=== PATIENT | male | born 1960 | race Caucasian/White ===

== ENCOUNTER → 2018-09-01 | Outpatient (CLI) | payer BC ==
[~2018-09-01] MED LIST: ZYRTEC10 M3 PO
== END | disposition home or self-care (01) ==
LOC: RAD 11:55
DX: R05 Cough (principal); R07.89 Other chest pain; F17.200 Nicotine dependence, unspecified, uncomplicated

== ENCOUNTER 2019-01-19 14:29 | Inpatient (IN) | payer BC ==
[~2019-01-19] VITALS: Ht 170.2 cm; Wt 81.2 kg
--- NOTE | ~2019-01-19 | EKG ---
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
--- NOTE | ~2019-01-19 | EKG ---
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
--- NOTE | ~2019-01-19 | ST ---
[place], [place] EXERCISE STRESS TEST REPORT [id number] UN[facility] #: [id number] ROOM: 406 DOCTOR: [place],BECKY BIRTHDATE: [birth year] DOS: 01/20/2019 LEXISCAN STRESS TEST REASON FOR TEST: Evaluation of chest pain. PHYSICAL EXAMINATION NECK: Supple. LUNGS: Clear anteriorly. HEART: Regular rhythm. PROTOCOL: Lexiscan protocol. Maximum heart rate 110, peak blood pressure 142/72. Protocol, initially Gadiel protocol was attempted, the patient unable to achieve the target heart rate, hence it was changed to Lexiscan protocol. SYMPTOMS: The patient is chest pain free. EKG: Resting EKG showed sinus rhythm, sinus bradycardia. Stress EKG showed no ischemia, no arrhythmias. CONCLUSION: Clinically, the patient is chest pain free. EKG, nonischemic. POST-STRESS COMPLICATIONS: None. The patient received total of 0.4 mg Lexiscan. BECKY GUTHRIE MD CM:STRESS:EXERCISE STRESS TEST REPORT 1151 1446 BECKY GUTHRIE MD
--- NOTE | ~2019-01-19 | EKG ---
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
[2019-01-19 14:29] VITALS: BP 125/72
[2019-01-19 14:52] LABS: BASO # 0.1 10*3/uL (0.0-0.1); BASO % 0.7 % (0.0-1.0); EOS # 0.2 10*3/uL (0.0-0.4); EOS % 2.3 % (1.0-4.0); HEMATOCRIT 47.4 % (42.0-52.0); HEMOGLOBIN 16.2 g/dl (14.0-18.0); LYMPH # 1.7 10*3/uL (1.3-4.4); LYMPH % 24.9 % (27.0-41.0); MEAN CELL VOLUME 97.1 fl (80.0-94.0); MEAN CORPUSCULAR HGB 33.2 pg (27.0-31.0); MEAN CORPUSCULAR HGB CONC 34.2 g/dl (33.0-37.0); MEAN PLATELET VOLUME 9.6 fl (9.6-12.3); MONO # 0.7 10*3/uL (0.1-1.0); MONO % 9.9 % (3.0-9.0); NEUT # 4.3 10*3/uL (2.3-7.9); NEUT % 61.9 % (47.0-73.0); PLATELET COUNT AUTOMATED 193 10*3/uL (130-400); RED BLOOD COUNT 4.88 10*6/uL (4.50-5.90); RED CELL DISTRI WIDTH 12.6 % (0-14.5)
[2019-01-19 15:03] LABS: ACT PARTIAL THROMBO TIME 28.2 SECONDS (20.0-32.1); INTERNATIONAL NORM RATIO 1.1 (2.0-3.5)
[2019-01-19 15:09] LABS: ALBUMIN 3.6 gm/dl (3.1-4.5); ALKALINE PHOSPHATASE 48 U/L (45-117); BUN 9 mg/dl (7-24); CHLORIDE 107 mmol/L (98-107); CREATININE 0.72 mg/dL (0.70-1.30); POTASSIUM 3.3 mmol/L (3.5-5.1); SGOT/AST 14 IU/L (3-35); SGPT/ALT 16 U/L (12-78); SODIUM 141 mmol/L (136-145); TOTAL PROTEIN 7.4 gm/dL (6.4-8.2)
[2019-01-19 15:10] LABS: TROPONIN I < 0.015 ng/ml (<0.045)
[2019-01-19 16:25] VITALS: BP 121/70
[2019-01-19 16:51] VITALS: BP 121/70
[2019-01-19] MEDS ORDERED: ZYRTEC10 M3 PO (17:00)
[2019-01-19 20:00] VITALS: BP 121/70
[2019-01-20] VITALS: BP 141/73
[2019-01-20 06:28] LABS: BASO # 0.1 10*3/uL (0.0-0.1); BASO % 0.7 % (0.0-1.0); EOS # 0.2 10*3/uL (0.0-0.4); EOS % 2.3 % (1.0-4.0); HEMATOCRIT 46.4 % (42.0-52.0); HEMOGLOBIN 15.6 g/dl (14.0-18.0); LYMPH # 1.2 10*3/uL (1.3-4.4); LYMPH % 15.3 % (27.0-41.0); MEAN CELL VOLUME 98.3 fl (80.0-94.0); MEAN CORPUSCULAR HGB 33.1 pg (27.0-31.0); MEAN CORPUSCULAR HGB CONC 33.6 g/dl (33.0-37.0); MEAN PLATELET VOLUME 10.2 fl (9.6-12.3); MONO # 0.7 10*3/uL (0.1-1.0); NEUT # 5.6 10*3/uL (2.3-7.9); NEUT % 72.4 % (47.0-73.0); PLATELET COUNT AUTOMATED 164 10*3/uL (130-400); RED BLOOD COUNT 4.72 10*6/uL (4.50-5.90); RED CELL DISTRI WIDTH 12.5 % (0-14.5); WHITE BLOOD COUNT 7.7 10*3/uL (4.8-10.8)
[2019-01-20 06:53] LABS: BUN 10 mg/dl (7-24); CHLORIDE 106 mmol/L (98-107); CREATININE 0.61 mg/dL (0.70-1.30); POTASSIUM 3.9 mmol/L (3.5-5.1); SODIUM 139 mmol/L (136-145)
[2019-01-20 07:04] LABS: CHOLESTEROL 170 mg/dL (<200); FREE T4 0.87 ng/dl (0.76-1.46); HDL CHOLESTEROL 71 mg/dl (40-60); LDL CHOLESTEROL 89 mg/dL (9-159); TRIGLYCERIDES 48 mg/dl (<150); VLDL CHOLESTEROL 10 mg/dL (6-40)
[2019-01-20 07:13] LABS: VITAMIN D, 25-HYDROXY 24.7 ng/mL (30-100)
[2019-01-20 08:00] VITALS: BP 138/74
[2019-01-20 12:00] VITALS: BP 129/87
== END 2019-01-20 14:52 | disposition home or self-care (01) | DRG 313 ==
LOC: ED 14:29 → EDHOLD 15:29 → 4E 15:29
PROVIDERS: Emergency Medicine; Internal Medicine; ADMIT Internal Medicine
PROC: 3E073KZ Introduction of Other Diagnostic Substance into Coronary Artery, Percutaneous Approach (ICD-10-PCS; principal; 2019-01-20)
PROC: 4A02XM4 Measurement of Cardiac Total Activity, External Approach (ICD-10-PCS; principal; 2019-01-20)
DX: R07.9 Chest pain, unspecified (principal); F17.210 Nicotine dependence, cigarettes, uncomplicated; E87.6 Hypokalemia; R73.9 Hyperglycemia, unspecified; D75.89 Other specified diseases of blood and blood-forming organs; Z71.6 Tobacco abuse counseling; Z87.01 Personal history of pneumonia (recurrent); Z98.52 Vasectomy status; Z80.0 Family history of malignant neoplasm of digestive organs

== ENCOUNTER 2021-01-10 06:24 | Inpatient (IN) | payer SELFPAY ==
[~2021-01-10] VITALS: Ht 167.6 cm; Wt 90.8 kg
[2021-01-10 06:33] VITALS: BP 162/99
[2021-01-10 07:06] LABS: BASO # 0.1 10*3/uL (0.0-0.1); BASO % 0.4 % (0.0-1.0); EOS % 0.1 % (1.0-4.0); HEMATOCRIT 52.4 % (42.0-52.0); LYMPH # 1.4 10*3/uL (1.3-4.4); LYMPH % 9.8 % (27.0-41.0); MEAN CELL VOLUME 98.7 fl (80.0-94.0); MEAN CORPUSCULAR HGB 34.3 pg (27.0-31.0); MEAN CORPUSCULAR HGB CONC 34.7 g/dl (33.0-37.0); MONO % 6.9 % (3.0-9.0); NEUT # 11.4 10*3/uL (2.3-7.9); NEUT % 82.4 % (47.0-73.0); PLATELET COUNT AUTOMATED 156 10*3/uL (130-400); RED BLOOD COUNT 5.31 10*6/uL (4.50-5.90); RED CELL DISTRI WIDTH 13.4 % (0-14.5); WHITE BLOOD COUNT 13.8 10*3/uL (4.8-10.8)
[2021-01-10 07:19] VITALS: BP 139/86
[2021-01-10 07:22] LABS: ALBUMIN 3.2 gm/dl (3.1-4.5); ALKALINE PHOSPHATASE 82 U/L (45-117); BUN 2 mg/dl (7-24); CHLORIDE 100 mmol/L (98-107); CREATININE 0.69 mg/dL (0.70-1.30); POTASSIUM 3.2 mmol/L (3.5-5.1); SGOT/AST 36 IU/L (3-35); SGPT/ALT 27 U/L (12-78); SODIUM 132 mmol/L (136-145); TOTAL PROTEIN 7.9 gm/dL (6.4-8.2)
[2021-01-10 07:24] LABS: LIPASE 2024 U/L (73-393); TROPONIN I < 0.015 ng/ml (<0.045)
[2021-01-10 12:48] VITALS: BP 142/93
[2021-01-10 16:00] VITALS: BP 140/88
[2021-01-10 20:00] VITALS: BP 138/84
[2021-01-11] VITALS: BP 120/104
[2021-01-11 06:34] LABS: ALBUMIN 2.7 gm/dl (3.1-4.5); BUN 4 mg/dl (7-24); CHLORIDE 104 mmol/L (98-107); CHOLESTEROL 88 mg/dL (<200); CREATININE 0.71 mg/dL (0.70-1.30); LDL CHOLESTEROL 47 mg/dL (9-159); LIPASE 392 U/L (73-393); SGOT/AST 22 IU/L (3-35); SGPT/ALT 20 U/L (12-78); SODIUM 135 mmol/L (136-145); TOTAL PROTEIN 6.9 gm/dL (6.4-8.2); TRIGLYCERIDES 70 mg/dl (<150)
[2021-01-11 06:41] LABS: ALKALINE PHOSPHATASE 66 U/L (45-117); FREE T4 0.87 ng/dl (0.76-1.46)
[2021-01-11 07:09] LABS: BASO % 0.3 % (0.0-1.0); EOS # 0.1 10*3/uL (0.0-0.4); EOS % 0.8 % (1.0-4.0); HEMATOCRIT 49.5 % (42.0-52.0); LYMPH % 9.7 % (27.0-41.0); MEAN CELL VOLUME 100.8 fl (80.0-94.0); MEAN CORPUSCULAR HGB CONC 33.7 g/dl (33.0-37.0); MEAN PLATELET VOLUME 11.2 fl (9.6-12.3); MONO # 0.8 10*3/uL (0.1-1.0); MONO % 8.2 % (3.0-9.0); NEUT % 80.7 % (47.0-73.0); RED BLOOD COUNT 4.91 10*6/uL (4.50-5.90); RED CELL DISTRI WIDTH 13.6 % (0-14.5); WHITE BLOOD COUNT 9.9 10*3/uL (4.8-10.8)
[2021-01-11 07:10] LABS: PLATELET COUNT AUTOMATED 108 10*3/uL (130-400)
[2021-01-11 08:00] VITALS: BP 134/81
[2021-01-11 12:00] VITALS: BP 140/78
== END 2021-01-11 14:32 | disposition left against medical advice (07) | DRG 439 ==
LOC: ED 06:24 → EDHOLD 09:11 → 5E 11:48
PROVIDERS: Internal Medicine; ADMIT Emergency Medicine; ATTEND Emergency Medicine
DX: K85.90 Acute pancreatitis without necrosis or infection, unspecified (principal); E87.1 Hypo-osmolality and hyponatremia; R65.10 Systemic inflammatory response syndrome (SIRS) of non-infectious origin without acute organ dysfunction; K92.1 Melena; F10.10 Alcohol abuse, uncomplicated; E87.6 Hypokalemia; D75.1 Secondary polycythemia; D72.829 Elevated white blood cell count, unspecified; F17.210 Nicotine dependence, cigarettes, uncomplicated; K70.0 Alcoholic fatty liver; E66.9 Obesity, unspecified; R74.01 Elevation of levels of liver transaminase levels; R73.9 Hyperglycemia, unspecified; Z53.29 Procedure and treatment not carried out because of patient's decision for other reasons; Z98.52 Vasectomy status; Z80.0 Family history of malignant neoplasm of digestive organs; Z71.6 Tobacco abuse counseling; Z68.32 Body mass index [BMI] 32.0-32.9, adult

== ENCOUNTER 2021-04-29 21:51 | Inpatient (IN) | payer SELFPAY ==
[~2021-04-29] VITALS: Ht 170.2 cm; Wt 87.2 kg
[2021-04-29 21:55] VITALS: BP 207/152
[2021-04-29 22:25] LABS: HEMATOCRIT 43.3 % (42.0-52.0); MEAN CELL VOLUME 97.1 fl (80.0-94.0); MEAN CORPUSCULAR HGB 33.4 pg (27.0-31.0); MEAN CORPUSCULAR HGB CONC 34.4 g/dl (33.0-37.0); MEAN PLATELET VOLUME 9.3 fl (9.6-12.3); NUCLEATED RED BLOOD CELL 0.1 10*3/uL (0.0-0.0); NUCLEATED RED BLOOD CELL 0.4 % (0.0-0.0); PLATELET COUNT AUTOMATED 281 10*3/uL (130-400); RED BLOOD COUNT 4.46 10*6/uL (4.50-5.90); RED CELL DISTRI WIDTH 12.8 % (0-14.5); WHITE BLOOD COUNT 33.1 10*3/uL (4.8-10.8)
[2021-04-29 22:35] LABS: BILIRUBIN Negative (Negative); BLOOD 2+ (Negative); CLARITY Clear (Clear); COLOR Yellow (Yellow); GLUCOSE 3+ (Negative); KETONE 1+ (Negative); LEUKO ESTERASE Negative (Negative); NITRITE Negative (Negative); SPECIFIC GRAVITY 1.015 (1.001-1.030); UROBILINOGEN 0.2 E.U./dl (0.0-1.0)
[2021-04-29 22:39] VITALS: BP 130/79
[2021-04-29 22:45] LABS: URINE AMPHETAMINES < 1000 (1000ng/ml); URINE BARBITURATES < 200 (200ng/ml); URINE BENZODIAZEPINES < 200 (200ng/ml); URINE CANNABINOIDS (THC) < 50 (50ng/ml); URINE COCAINE < 300 (300ng/ml); URINE METHADONE < 300 (300ng/ml); URINE OPIATES < 300 (300ng/ml)
[2021-04-29 22:46] LABS: URINE PHENCYCLIDINE < 25 (25ng/ml)
[2021-04-29 22:48] LABS: ALKALINE PHOSPHATASE 121 U/L (45-117); BUN 12 mg/dl (7-24); CHLORIDE 90 mmol/L (98-107); CREATININE 1.48 mg/dL (0.70-1.30); POTASSIUM 3.5 mmol/L (3.5-5.1); SGPT/ALT 34 U/L (12-78); SODIUM 123 mmol/L (136-145); TOTAL PROTEIN 8.4 gm/dL (6.4-8.2)
[2021-04-29 22:51] LABS: ETHYL ALCOHOL < 3.0 mg/dl (<3)
[2021-04-29 22:58] LABS: PLATELET SUFFICIENCY NORMAL (NORMAL); TOTAL CELLS COUNTED 100 #CELLS
[2021-04-29 23:03] LABS: BACTERIA TRACE; RBC 16-20 rbc/hpf (0-2)
[2021-04-29 23:05] LABS: SGOT/AST 28 IU/L (3-35)
[2021-04-29 23:27] VITALS: BP 124/76
[2021-04-30] VITALS (12 sets, daily range): BP systolic 92–134; BP diastolic 46–77
[2021-04-30 00:43] LABS: BUN 11 mg/dl (7-24); CHLORIDE 95 mmol/L (98-107); CREATININE 1.28 mg/dL (0.70-1.30); POTASSIUM 3.4 mmol/L (3.5-5.1); SODIUM 125 mmol/L (136-145)
[2021-04-30 01:26] LABS: ARTERIAL BLOOD GAS PO2 145.5 (80-90)
[2021-04-30 01:30] LABS: ARTERIAL BLOOD GAS PH 7.144 (7.35-7.45)
[2021-04-30 03:09] LABS: BUN 12 mg/dl (7-24); CHLORIDE 97 mmol/L (98-107); CREATININE 1.28 mg/dL (0.70-1.30); POTASSIUM 3.4 mmol/L (3.5-5.1); SODIUM 128 mmol/L (136-145)
[2021-04-30 06:32] LABS: BUN 11 mg/dl (7-24); CHLORIDE 101 mmol/L (98-107); CREATININE 0.92 mg/dL (0.70-1.30); POTASSIUM 3.7 mmol/L (3.5-5.1); SODIUM 129 mmol/L (136-145)
[2021-04-30 06:48] LABS: FREE T4 0.85 ng/dl (0.76-1.46); THYROID STIM HORMONE (HS) 0.994 uIU/ml (0.358-4.75)
[2021-04-30 07:09] LABS: HEMATOCRIT 36.8 % (42.0-52.0); MEAN CELL VOLUME 96.8 fl (80.0-94.0); MEAN CORPUSCULAR HGB 33.4 pg (27.0-31.0); MEAN CORPUSCULAR HGB CONC 34.5 g/dl (33.0-37.0); MEAN PLATELET VOLUME 9.5 fl (9.6-12.3); NUCLEATED RED BLOOD CELL 0.1 10*3/uL (0.0-0.0); NUCLEATED RED BLOOD CELL 0.2 % (0.0-0.0); WHITE BLOOD COUNT 24.4 10*3/uL (4.8-10.8)
[2021-04-30 07:11] LABS: PLATELET COUNT AUTOMATED 190 10*3/uL (130-400)
[2021-04-30 08:47] LABS: PLATELET SUFFICIENCY NORMAL (NORMAL); TOTAL CELLS COUNTED 100 #CELLS; VACUOLATION OF NEUTROPHILS SLIGHT
[2021-04-30 08:48] LABS: BURR CELLS MODERATE; POLYCHROMASIA SLIGHT
[2021-04-30 10:15] LABS: BUN 10 mg/dl (7-24); CHLORIDE 102 mmol/L (98-107); CREATININE 0.69 mg/dL (0.70-1.30); POTASSIUM 4.5 mmol/L (3.5-5.1); SODIUM 129 mmol/L (136-145)
[2021-04-30 12:40] LABS: BUN 10 mg/dl (7-24); CHLORIDE 104 mmol/L (98-107); CREATININE 0.68 mg/dL (0.70-1.30); POTASSIUM 4.2 mmol/L (3.5-5.1); SODIUM 131 mmol/L (136-145)
[2021-04-30 17:34] LABS: BUN 9 mg/dl (7-24); CHLORIDE 107 mmol/L (98-107); POTASSIUM 4.3 mmol/L (3.5-5.1); SODIUM 133 mmol/L (136-145)
[2021-05-01] VITALS (8 sets, daily range): BP systolic 97–115; BP diastolic 51–73
[2021-05-01 05:58] LABS: ALKALINE PHOSPHATASE 79 U/L (45-117); BUN 8 mg/dl (7-24); CHLORIDE 108 mmol/L (98-107); CREATININE 0.47 mg/dL (0.70-1.30); SGOT/AST 43 IU/L (3-35); SGPT/ALT 35 U/L (12-78); SODIUM 135 mmol/L (136-145)
[2021-05-01 06:14] LABS: BASO % 0.2 % (0.0-1.0); EOS % 0.3 % (1.0-4.0); HEMATOCRIT 32.1 % (42.0-52.0); LYMPH # 1.2 10*3/uL (1.3-4.4); LYMPH % 11.8 % (27.0-41.0); MEAN CELL VOLUME 94.4 fl (80.0-94.0); MEAN CORPUSCULAR HGB 33.8 pg (27.0-31.0); MEAN CORPUSCULAR HGB CONC 35.8 g/dl (33.0-37.0); MEAN PLATELET VOLUME 9.5 fl (9.6-12.3); MONO # 0.7 10*3/uL (0.1-1.0); MONO % 7.3 % (3.0-9.0); NEUT # 7.9 10*3/uL (2.3-7.9); NEUT % 80.1 % (47.0-73.0); NUCLEATED RED BLOOD CELL 0.2 % (0.0-0.0); PLATELET COUNT AUTOMATED 139 10*3/uL (130-400); RED CELL DISTRI WIDTH 12.9 % (0-14.5); WHITE BLOOD COUNT 9.9 10*3/uL (4.8-10.8)
[2021-05-02] VITALS: BP 107/65
[2021-05-02 06:39] LABS: BUN 7 mg/dl (7-24); CHLORIDE 107 mmol/L (98-107); CREATININE 0.51 mg/dL (0.70-1.30); POTASSIUM 3.7 mmol/L (3.5-5.1); SODIUM 137 mmol/L (136-145)
[2021-05-02 08:00] VITALS: BP 98/62
[2021-05-02] MEDS ORDERED: PAROXETINE HCL20 MG PO (08:19)
[2021-05-02 12:00] VITALS: BP 94/70
[2021-05-02 16:00] VITALS: BP 103/69
[2021-05-02 20:00] VITALS: BP 116/76
[2021-05-03] VITALS: BP 92/58
[2021-05-03 06:25] LABS: BUN 5 mg/dl (7-24); CHLORIDE 105 mmol/L (98-107); CREATININE 0.52 mg/dL (0.70-1.30); POTASSIUM 3.7 mmol/L (3.5-5.1); SODIUM 133 mmol/L (136-145)
[2021-05-03 08:00] VITALS: BP 105/62
[2021-05-03 12:00] VITALS: BP 127/62
[2021-05-03 16:00] VITALS: BP 117/84
[2021-05-04] VITALS: BP 114/64
[2021-05-04 06:34] LABS: BUN 5 mg/dl (7-24); CHLORIDE 105 mmol/L (98-107); CREATININE 0.53 mg/dL (0.70-1.30); POTASSIUM 3.7 mmol/L (3.5-5.1); SODIUM 135 mmol/L (136-145)
[2021-05-04 08:00] VITALS: BP 129/84
[2021-05-04 12:00] VITALS: BP 109/67
[2021-05-04 16:00] VITALS: BP 110/68
[2021-05-04 20:00] VITALS: BP 110/60
[2021-05-05] VITALS: BP 152/85
[2021-05-05 06:38] LABS: BUN 4 mg/dl (7-24); CHLORIDE 102 mmol/L (98-107); CREATININE 0.64 mg/dL (0.70-1.30); POTASSIUM 3.9 mmol/L (3.5-5.1); SODIUM 133 mmol/L (136-145)
[2021-05-05 08:00] VITALS: BP 140/80
[2021-05-05 12:00] VITALS: BP 122/76
[2021-05-05 14:56] VITALS: BP 106/71
[2021-05-05 20:00] VITALS: BP 100/62
[2021-05-06] VITALS: BP 128/76
[2021-05-06 06:13] LABS: BASO % 0.6 % (0.0-1.0); EOS # 0.2 10*3/uL (0.0-0.4); EOS % 2.4 % (1.0-4.0); HEMATOCRIT 34.5 % (42.0-52.0); LYMPH # 0.8 10*3/uL (1.3-4.4); LYMPH % 12.7 % (27.0-41.0); MEAN CORPUSCULAR HGB CONC 33.6 g/dl (33.0-37.0); MEAN PLATELET VOLUME 9.5 fl (9.6-12.3); MONO # 0.7 10*3/uL (0.1-1.0); MONO % 11.1 % (3.0-9.0); NEUT # 4.8 10*3/uL (2.3-7.9); NEUT % 72.6 % (47.0-73.0); PLATELET COUNT AUTOMATED 198 10*3/uL (130-400); RED BLOOD COUNT 3.52 10*6/uL (4.50-5.90); WHITE BLOOD COUNT 6.6 10*3/uL (4.8-10.8)
[2021-05-06 06:36] LABS: ALBUMIN 2.3 gm/dl (3.1-4.5); BUN 7 mg/dl (7-24); CHLORIDE 102 mmol/L (98-107); CREATININE 0.54 mg/dL (0.70-1.30); POTASSIUM 3.7 mmol/L (3.5-5.1); SGOT/AST 19 IU/L (3-35); SGPT/ALT 28 U/L (12-78); SODIUM 132 mmol/L (136-145); TOTAL PROTEIN 6.8 gm/dL (6.4-8.2)
[2021-05-06 06:37] LABS: ALKALINE PHOSPHATASE 79 U/L (45-117)
[2021-05-06 08:00] VITALS: BP 124/80
[2021-05-06 12:00] VITALS: BP 101/72
[2021-05-06 15:57] VITALS: BP 136/88
[2021-05-06 20:00] VITALS: BP 114/79
[2021-05-06 23:46] LABS: BILIRUBIN Negative (Negative); BLOOD 3+ (Negative); CLARITY Cloudy (Clear); COLOR Dark Yellow (Yellow); GLUCOSE Negative (Negative); KETONE 1+ (Negative); LEUKO ESTERASE Trace (Negative); NITRITE Negative (Negative)
[2021-05-06 23:57] LABS: BACTERIA 1+; EPITHELIAL CELLS 0-2; RBC 31-40 rbc/hpf (0-2); YEAST TRACE
[2021-05-07] VITALS: BP 104/54
[2021-05-07 08:00] VITALS: BP 112/70
[2021-05-07 08:08] LABS: CHLORIDE 100 mmol/L (98-107); POTASSIUM 3.4 mmol/L (3.5-5.1); SODIUM 133 mmol/L (136-145)
[2021-05-07 08:15] LABS: ALBUMIN 2.7 gm/dl (3.1-4.5); ALKALINE PHOSPHATASE 89 U/L (45-117); BUN 7 mg/dl (7-24); CREATININE 0.75 mg/dL (0.70-1.30); SGOT/AST 20 IU/L (3-35); SGPT/ALT 29 U/L (12-78)
[2021-05-07 12:00] VITALS: BP 114/72
[2021-05-07] MEDS ORDERED: LEVOFLOXACIN750 M2 PO (14:03)
[2021-05-07 16:00] VITALS: BP 120/74
== END 2021-05-07 21:23 | disposition home or self-care (01) | DRG 871 ==
LOC: ED 21:51 → EDHOLD 23:57 → ED 23:57 → EDHOLD 04-30 00:05 → ICCU 04-30 16:58 → EDHOLD 04-30 16:58 → 4E 05-01 14:53
PROVIDERS: Family Medicine; Internal Medicine; Nurse Practitioner Adult Health; Student in an Organized Health Care Education/Training Program; ADMIT Internal Medicine; ATTEND Internal Medicine
DX: A41.9 Sepsis, unspecified organism (principal); E11.10 Type 2 diabetes mellitus with ketoacidosis without coma; N17.0 Acute kidney failure with tubular necrosis; G93.41 Metabolic encephalopathy; J18.9 Pneumonia, unspecified organism; I16.1 Hypertensive emergency; E87.1 Hypo-osmolality and hyponatremia; E44.0 Moderate protein-calorie malnutrition; E87.6 Hypokalemia; E11.22 Type 2 diabetes mellitus with diabetic chronic kidney disease; E83.41 Hypermagnesemia; Z20.822 Contact with and (suspected) exposure to COVID-19; E87.8 Other disorders of electrolyte and fluid balance, not elsewhere classified; E88.9 Metabolic disorder, unspecified; N18.31 Chronic kidney disease, stage 3a; Z68.30 Body mass index [BMI] 30.0-30.9, adult; Z82.49 Family history of ischemic heart disease and other diseases of the circulatory system